=== PATIENT | male | born 1955 | race Caucasian/White ===

== ENCOUNTER 2017-04-30 18:39 | Inpatient (IN) | payer BC ==
[~2017-04-30] VITALS: Ht 162.6 cm; Wt 90.7 kg
[~2017-04-30 18:39] MED LIST: ADVIN10/60 INH; ALBUAER INH; ASPI-320 PO; MONT1TAB3 PO; SIMV20TA2 PO
[2017-04-30] MEDS ORDERED: ALBUT/IPRATROP 3MG/0.5MG NEB 3 ML VIAL INH ONE (18:45)
[2017-04-30 18:51] VITALS: PULSE 104; O2SAT 97
[2017-04-30 18:52] VITALS: PULSE 104; O2SAT 97
[2017-04-30] MEDS ORDERED: SODIUM CHLORIDE 0.9% 1000ML 1,000 ML IV STA (18:58)
--- NOTE | 2017-04-30 19:15 | DIAGNOSTIC IMAGING REPORT ---
CHEST ONE VIEW PORTABLE CLINICAL HISTORY: Asthma attack COMPARISON STUDY: Chest radiograph June 20, 2014. FINDINGS: Lung volumes are diminished. No pneumothorax or pleural effusion is present. There is no lobar consolidation. There is lower lung interstitial prominence. Cardiac size is at the upper limits of normal and accentuated on this hypoventilatory study. IMPRESSION: Lower lung interstitial prominence which is likely related to a hypoventilatory study. An infectious etiology or pulmonary vascular congestion could appear similar although are considered less likely. No definite acute cardiopulmonary findings. Electronically signed by: Mich Ortiz M.D. 04/30/2017 7:13 PM Dictated Date/Time: 04/30/2017 7:09 PM
[2017-04-30] MEDS ORDERED: DOXYCYCLINE IV 100 MG in DEXTROSE 5% 100ML 100 ML IV STA (19:17)
[2017-04-30 19:18] LABS: BASO % 0.6 %; BASO ABS # 0.06 K/uL (0-0.2); EOS % 1.1 %; EOS ABS # 0.11 K/uL (0-0.5); HEMATOCRIT 44.4 % (42-52); HEMOGLOBIN 15.9 g/dL (14.0-18.0); IG# 0.03 K/uL (0.00-0.02); LYMPH % 22.8 %; MEAN CELL VOLUME 87.9 fL (80-100); MEAN CORPUSCULAR HEMOGLOBIN 31.5 pg (25-34); MEAN CORPUSCULAR HGB CONC 35.8 g/dl (32-36); MEAN PLATELET VOLUME 10.4 fL (7.4-10.4); MONO % 5.3 %; MONO ABS # 0.51 K/uL (0.11-0.59); NEUT % 69.9 %; NEUT ABS # 6.75 K/uL (1.4-6.5); PLATELET COUNT 193 K/uL (130-400); RED CELL DISTRIBUTION WIDTH SD 41.4 fL (36.4-46.3); WHITE BLOOD COUNT 9.66 K/uL (4.8-10.8)
[2017-04-30 19:34] LABS: BLOOD UREA NITROGEN 17 mg/dl (7-18); CALCIUM 8.8 mg/dl (8.5-10.1); CARBON DIOXIDE 23 mmol/L (21-32); GLUCOSE 220 mg/dl (70-99); SODIUM 139 mmol/L (136-145)
[2017-04-30] MEDS ORDERED: POTASSIUM CHLR 20 MEQ / WTR 20 MEQ in PREMIXED WATER 100 ML IV STA (19:40)
[2017-04-30 20:01] LABS: INFLUENZA B ANTIGEN Neg for Influ B (NEG)
[2017-04-30] MEDS ORDERED: ICOS1CAP PO (20:04)
[2017-04-30] MEDS ORDERED: ASPI81TA28 PO (20:04)
[2017-04-30] MEDS ORDERED: [UNRECOGNIZED DRUG - OTHER] PO (20:04)
[2017-04-30] MEDS ORDERED: [UNRECOGNIZED DRUG - OTHER] PO (20:04)
[2017-04-30] MEDS ORDERED: LISI-461 PO (20:04)
[2017-04-30] MEDS ORDERED: CHOL400C PO (20:04)
[2017-04-30] MEDS ORDERED: SIMV40TA2 PO (20:04)
[2017-04-30] MEDS ORDERED: [UNRECOGNIZED DRUG - OTHER] PO (20:04)
[2017-04-30] MEDS: POTASSIUM CHLR 10 MEQ / WTR 10 MEQ in PREMIXED WATER 100 ML IV SCH ×2 (20:05→21:13)
[2017-04-30] MEDS ORDERED: CLONIDINE HCL 0.1 MG TAB PO PRN (20:30)
[2017-04-30 20:39] LABS: INFLUENZA B PCR Neg for Influ B (NEG)
[2017-04-30 20:41] LABS: INFLUENZA A PCR POS for Influ A (NEG)
[2017-04-30] MEDS ORDERED: ACETAMINOPHEN 325 MG TAB PO PRN (20:45)
--- NOTE | 2017-04-30 20:45 | NUR ---
PATIENT ADMITTED TO PCU ROOM 218 FROM ER VIA LITTER FOR ASTHMA EXACERBATION. PRIMARY RN AT BEDSIDE. KNITTING MACHINE MECHANIC APPLIED, VITAL SIGNS OBTAINED. PATIENT ON BIPAP AT THIS TIME, ALERT AND ORIENTED, AND AMBULATORY. NO ACUTE DISTRESS NOTED. PATIENT ASSESSED, ADMISSION ASSESSMENT COMPLETED, SEE EMR FOR ASSESSMENT. PATIENT DENIES DYSPNEA. PATIENT REPORTS PAIN 5/10, HEADACHE, AT THIS TIME, GOAL PAIN 0/10. FAMILY AT BEDSIDE. EDUCATION PROVIDED ON FALL RISK AND YELLOW SOCKS APPLIED. EDUCATION PROVIDED ON PRECAUTIONS. PATIENT ORIENTED TO ROOM, CALL LOGAN, BED CONTROLS, AND HOSPITAL PROCEDURE. CALL LOGAN WITHIN REACH. CONTINUING CARE PROVIDED BY PRIMARY RNKERMIT. GOAL FOR DISCHARGE IS HOME WITH .
[2017-04-30 21:00] VITALS: BP 177/76; PULSE 97; TEMP 36.5; O2SAT 99; Ht 162.6 cm; Wt 90.7 kg
[2017-04-30] MEDS ORDERED: POTASSIUM CHLORIDE 20 MEQ TABCR PO ONE (21:00)
[2017-04-30] MEDS: SIMVASTATIN 40 MG TAB PO SCH (21:12)
[2017-04-30] MEDS: CEFTRIAXONE SOD INJ 1 GM in DEXTROSE 5% ADD-VANTAGE 50ML 50 ML IV SCH (21:12)
[2017-04-30] MEDS: METHYLPREDNISOLONE IV 60 MG in SYRINGE 0 ML IV SCH (21:12)
[2017-04-30] MEDS: LISINOPRIL 10 MG TAB PO SCH (21:12)
[2017-04-30] MEDS: NSS + 20MEQ KCL 1000ML 1,000 ML IV SCH (21:13)
[2017-04-30] MEDS ORDERED: OSELTAMIVIR PHOSPHATE 75 MG CAP PO STA (21:32)
--- NOTE | 2017-04-30 21:46 | EMERGENCY ROOM VISIT NOTE ---
History Report prepared by Deonna: Twan Correia Under the Supervision of: Dr. Marin Perera M.D. First contact with patient: 18:42 Chief Complaint: RESPIRATORY DISTRESS Stated Complaint: ASTHMA ATTACK History of Present Illness The patient is a 61 year old male who presents to the Emergency Room by EMS with complaints of worsening shortness of breath throughout the day. EMS states that the patient's breathing has improved significantly en route. Patient adds that his breathing is worsened with exertion and that he was unable to walk due to SOB today. He states he has tight lung moody. He denies any smoke exposure and sick contacts. He states he does have mild chest pressure (nonspecific). EMS states that they administered the patient multiple rounds of albuterol, 125 mg IV solumedrol, and 2 grams of IV magnesium. 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 Source of History: patient Onset: today Quality: other (shortness of breath) Timing: worsening Modifying Factors (Worsening): exertion Associated Symptoms: + chest pain (Mild chest pressure), + SOB Note: Patient adds he has tight lungs. Review of Systems See HPI for pertinent positives & negatives. A total of 10 systems reviewed and were otherwise negative. Past Medical & Surgical Medical Problems: (1) Asthma exacerbation Family History No pertinent family history stated. Social History Smoking Status: Unknown if Ever Smoked Drug Use: none Housing Status: lives with family Occupation Status: employed Current/Historical Medications Scheduled Aspirin (Aspirin Ec), 81 MG PO DAILY Cholecalciferol (Vitamin D3 400), 400 INTER.UNIT PO DAILY Icosapent Ethyl (Vascepa), 2 GM PO BID Lisinopril (Zestril), 10 MG PO DAILY Simvastatin (Zocor), 40 MG PO QPM [AG Immune], 2 CAP PO DAILY [BodyWise RightChoice], 1 CAP PO BID [Liva Tone], 2 CAP PO DAILY Allergies Coded Allergies: No Known Allergies (Unverified , 06/20/14) Physical Exam Vital Signs Date Time Temp Pulse Resp B/P (MAP) Pulse Ox O2 Delivery O2 Flow Rate FiO2 04/30/17 19:39 100 24 171/80 97 CPAP 04/30/17 19:33 189/88 04/30/17 19:09 93 19 96 CPAP 04/30/17 19:08 93 04/30/17 19:02 164/80 04/30/17 18:52 104 97 60 04/30/17 18:51 104 22 97 BiPAP/CPAP 04/30/17 18:39 36.6 92 20 189/97 98 BiPAP 04/30/17 18:39 100 BiPAP Physical Exam GENERAL: Patient is well appearing and in moderate distress. HEENT: No acute trauma, normocephalic atraumatic, mucous membranes moist, no nasal congestion, no scleral icterus. NECK: No stridor, no adenopathy, no meningismus, trachea is midline. LUNGS: Tight lung moody, mild wheezing, mildly dyspneic and tachypneic. HEART: Regular rate and rhythm. No murmurs, rubs, gallops appreciated. ABDOMEN: Soft, nontender, bowel sounds positive, no masses appreciated, no peritonitis. BACK: No midline tenderness, no CVA tenderness EXTREMITIES: Normal motion all extremities, no cyanosis, no edema. NEUROLOGIC: Alert and oriented, no acute motor or sensory deficits, no focal weakness, cranial nerves grossly intact. SKIN: No rash, no jaundice, no diaphoresis. Medical Decision & Procedures ER Provider Diagnostic Interpretation: Radiology results and stated below per my review and radiologist interpretation: CHEST ONE VIEW PORTABLE CLINICAL HISTORY: Asthma attack COMPARISON STUDY: Chest radiograph June 20, 2014. FINDINGS: Lung volumes are diminished. No pneumothorax or pleural effusion is present. There is no lobar consolidation. There is lower lung interstitial prominence. Cardiac size is at the upper limits of normal and accentuated on this hypoventilatory study. IMPRESSION: Lower lung interstitial prominence which is likely related to a hypoventilatory study. An infectious etiology or pulmonary vascular congestion could appear similar although are considered less likely. No definite acute cardiopulmonary findings. Electronically signed by: Mich Ortiz M.D. 04/30/2017 7:13 PM Laboratory Results 04/30/17 18:50 Red Blood Count 5.05, Mean Corpuscular Volume 87.9, Mean Corpuscular Hemoglobin 31.5, Mean Corpuscular Hemoglobin Concent 35.8, Mean Platelet Volume 10.4, Neutrophils (%) (Auto) 69.9, Lymphocytes (%) (Auto) 22.8, Monocytes (%) (Auto) 5.3, Eosinophils (%) (Auto) 1.1, Basophils (%) (Auto) 0.6, Neutrophils # (Auto) 6.75, Lymphocytes # (Auto) 2.20, Monocytes # (Auto) 0.51, Eosinophils # (Auto) 0.11, Basophils # (Auto) 0.06 04/30/17 18:50 Test 04/30/17 18:50 04/30/17 18:56 04/30/17 19:00 White Blood Count 9.66 K/uL (4.8-10.8) Red Blood Count 5.05 M/uL (4.7-6.1) Hemoglobin 15.9 g/dL (14.0-18.0) Hematocrit 44.4 % (42-52) Mean Corpuscular Volume 87.9 fL (80-100) Mean Corpuscular Hemoglobin 31.5 pg (25-34) Mean Corpuscular Hemoglobin Concent 35.8 g/dl (32-36) Platelet Count 193 K/uL (130-400) Mean Platelet Volume 10.4 fL (7.4-10.4) Neutrophils (%) (Auto) 69.9 % Lymphocytes (%) (Auto) 22.8 % Monocytes (%) (Auto) 5.3 % Eosinophils (%) (Auto) 1.1 % Basophils (%) (Auto) 0.6 % Neutrophils # (Auto) 6.75 K/uL (1.4-6.5) Lymphocytes # (Auto) 2.20 K/uL (1.2-3.4) Monocytes # (Auto) 0.51 K/uL (0.11-0.59) Eosinophils # (Auto) 0.11 K/uL (0-0.5) Basophils # (Auto) 0.06 K/uL (0-0.2) RDW Standard Deviation 41.4 fL (36.4-46.3) RDW Coefficient of Variation 13.0 % (11.5-14.5) Immature Granulocyte % (Auto) 0.3 % Immature Granulocyte # (Auto) 0.03 K/uL (0.00-0.02) Prothrombin Time 10.3 SECONDS (9.0-12.0) Prothromb Time International Ratio 1.0 (0.9-1.1) Anion Gap 11.0 mmol/L (3-11) Est Creatinine Clear Calc Drug Dose 58.9 ml/min Estimated GFR () 67.3 Estimated GFR (Non- 58.1 BUN/Creatinine Ratio 13.1 (10-20) Calcium Level 8.8 mg/dl (8.5-10.1) Magnesium Level 3.4 mg/dl (1.8-2.4) Troponin I < 0.015 ng/ml (0-0.045) Bedside Lactic Acid Venous 3.18 mmol/L (0.90-1.70) Influenza Type A (RT-PCR) POS for Influ A (NEG) Influenza Type A Antigen Neg for Influ A (NEG) Influenza Type B Antigen Neg for Influ B (NEG) Influenza Type B (RT-PCR) Neg for Influ B (NEG) Laboratory results as reviewed by me. Medications Administered Medications (Trade) Dose Ordered Sig/Katiana Route Start Time Stop Time Status Last Admin Dose Admin Albuterol/ Ipratropium (Duoneb) 12 ml ONE ONCE INH 04/30/17 18:45 04/30/17 18:46 DC 04/30/17 18:51 12 ML Sodium Chloride 1,000 ml @ 999 mls/hr Q1H1M STAT IV 04/30/17 18:58 04/30/17 19:58 DC 04/30/17 18:58 999 MLS/HR Doxycycline Hyclate 100 mg/ Dextrose 110 ml @ 50 mls/hr NOW STAT IV 04/30/17 19:17 04/30/17 21:28 DC 04/30/17 19:39 50 MLS/HR ECG Indication: chest pain Rate (beats per minute): 98 Rhythm: normal sinus Findings: ST depression (Lateral), no ectopy, other (No STEMI) ED Course 1839: The patient was evaluated in room B1. A complete history and physical exam was performed. 1941: Upon reevaluation, the patient will be further evaluated. Discussed results and treatment plan with the patient. He verbalized understanding and agreement with the treatment plan. The patient will be evaluated for further management. Medical Decision Differential: Infectious, Reactive Airway Disease, Pneumonia, Pneumothorax, COPD , CHF, ACS, Pulmonary Embolism, MSK, GI, Dissection, amongst other etiologies entertained. 61 yr old male arrives via EMS following severe asthma exacerbation. Med command given by me. Arrives already doing better though still quite tight thus will continue with bipap and continuous neb. Labs OK. Questionable infectious etiology thus will give dose of doxy. Some lateral ST depressions though no stemi and I feel this is unlikely ACS. LA is moderately elevated which I suspect due to severity of exacerbation rather than sepsis, but will given IV fluids to flush. Blood cultures were obtained on arrival as it is and I am given IV doxy for abx coverage. Symptoms consistent with Asthma and I feel unlikely this is PE and he has no current risk factors. Breathing well on Bipap and ABG looks ok. Stable hospitalist will be in to see for further work- up and treatment. Medication Reconcilliation Current Medication List: was personally reviewed by me Blood Pressure Screening Patient's blood pressure: Elevated blood pressure Blood pressure disposition: Referred to PCP (Monitored by hospitalist) Consults Time Called: 1939 Consulting Physician: Dr. Terry Cutler Hospitalist Returned Call: 1941 Discussed the patient's case. The patient will be evaluated for further treatment and disposition. Impression Primary Impression: Hypokalemia Additional Impressions: Acute asthma exacerbation Lactic acidosis Critical Care I have personally spent greater than 40 minutes of critical care time in the direct management of this patient. This was a life/limb threatening event. This includes time spent evaluating patient, direct bedside care, chart review, placing orders, interpretation of diagnostic studies, discussion with consultants, patient, and family members, as well as other required patient management activities. This 40 minutes is in excess of all separately billable procedures. Scribe Attestation The scribe's documentation has been prepared under my direction and personally reviewed by me in its entirety. I confirm that the note above accurately reflects all work, treatment, procedures, and medical decision making performed by me. Departure Information Dispostion Being Evaluated By Hospitalist Referrals Rainer Umanzor M.D. (PCP) Forms HOME CARE DOCUMENTATION FORM, IMPORTANT VISIT INFORMATION Patient Instructions Asthma - [facility], COPD - [facility], Croup - [facility], My [facility] Problem Qualifiers
[2017-04-30 21:47] VITALS: PULSE 93; O2SAT 99
[2017-04-30] MEDS: ENOXAPARIN 40 MG/0.4 ML SYR SC SCH (22:01)
[2017-04-30 23:31] LABS: CKMB 2.7 ng/ml (0.5-3.6)
[2017-04-30 23:45] VITALS: PULSE 90; O2SAT 98
[2017-04-30] MEDS: LEVALBUTEROL 1.25MG/0.5ML NEB INH SCH (23:57)
[2017-05-01] VITALS (17 sets, daily range): BP systolic 111–168; BP diastolic 65–74; PULSE 62–107; TEMP 36.3–36.8; O2SAT 97–99
--- NOTE | 2017-05-01 00:05 | NUR ---
A: Assessment completed- see EMR for full detail; VSS, - see EMR; AA&Ox4, Appropriate; NSR, noted on monitor; Denies CP/SOB, BIPAP; pt. denies pain at this time; Pt. currently resting comfortably in bed; no needs apparent or verbalized at this time; IV site intact - IVF infusing per order; labs reviewed - results of lactic acid called to MD -see EMR/ Physician notified; safety reviewed; call-manning & items of necessity in reach, Pt. rings appropriately for assistance; will continue to monitor & assess.
--- NOTE | 2017-05-01 00:35 | History and Physical ---
History & Physical Date & Time of Service: May 01, 2017 at 00:25 Chief Complaint: Asthma Exacerbation Primary Care Physician: Rainer Umanzor M.D. History of Present Illness Source: patient, spouse 61 year old male with history of asthma, HTN, JULES, Gout, presenting with shortness of breath, that started this afternoon. Patient states that he has history of asthma but rarely uses PRN inhalers, and has history of JULES, but does not use his CPAP. adds that patient has been outside in the cold for the past 1-2 days, doing carols for Margaret. Today, patient had progressive shortness of breath starting this morning and cough productive of yellow sputum. Has chills, sensation of chest pain with the dyspnea. Per his , patient had worsening of shortness of breath this afternoon prompting her to call EMS. Patient was apparently given Duonebs, Solumedrol while en route to the ER. At the ER, patient was noted to have wheezing and was placed on Bipap, given additional Duoneb. CXR showed possible left lower lobe pneumonia, and was given Doxycycline. On exam, patient was still on Bipap mask and reports that he feels improved compared to admission. Family History Non contributory Social History Smoking Status: Unknown if Ever Smoked Smokeless Tobacco Use: No Alcohol Use: none Drug Use: none Marital Status: Housing status: lives with family Occupational Status: employed Allergies Coded Allergies: No Known Allergies (Unverified , 06/20/14) Home Medications Scheduled Aspirin (Aspirin Ec), 81 MG PO DAILY Cholecalciferol (Vitamin D3 400), 400 INTER.UNIT PO DAILY Icosapent Ethyl (Vascepa), 2 GM PO BID Lisinopril (Zestril), 10 MG PO DAILY Simvastatin (Zocor), 40 MG PO QPM [AG Immune], 2 CAP PO DAILY [BodyWise RightChoice], 1 CAP PO BID [Liva Tone], 2 CAP PO DAILY Review of Systems Constitutional- no fever; no weight loss Eyes- no acute visual changes ENT- no sinus drainage; no pharyngitis Pulmonary- (+) as noted above Cardiac- (+) mild chest pain, no palpitations, no orthopnea, no dependent edema GI- no nausea, no vomiting, no diarrhea, no melena, no hematochezia - no dysuria, no hematuria Musculoskeletal- no arthralgias, no myalgias Derm- no rashes, no new skin lesions, no changing skin lesions Hematologic- no unusual bruising, no unusual bleeding Lymphatics- no adenopathy Endocrine- no polyuria or polydipsia; no heat or cold intolerance Neuro- no headaches, no focal neurologic symptoms Psych- no anxiety, no depression Physical Exam Vital Signs Date Time Temp Pulse Resp B/P (MAP) Pulse Ox O2 Delivery O2 Flow Rate FiO2 05/01/17 00:12 36.8 89 19 144/68 (93) 98 BiPAP 04/30/17 23:45 90 22 98 BiPAP/CPAP 04/30/17 21:47 93 99 40 04/30/17 21:00 36.5 97 20 177/76 99 BiPAP 04/30/17 20:11 92 18 183/90 98 CPAP 60 04/30/17 19:39 100 24 171/80 97 CPAP 04/30/17 19:33 189/88 04/30/17 19:09 93 19 96 CPAP 04/30/17 19:08 93 04/30/17 19:02 164/80 04/30/17 18:52 104 97 60 04/30/17 18:51 104 22 97 BiPAP/CPAP 04/30/17 18:39 36.6 92 20 189/97 98 BiPAP 04/30/17 18:39 100 BiPAP General Appearance: WD/WN, no apparent distress Head: normocephalic, atraumatic Eyes: normal inspection, PERRL, EOMI, sclerae normal ENT: normal ENT inspection, hearing grossly normal, pharynx normal Neck: supple, no adenopathy, thyroid normal, no JVD, trachea midline Respiratory/Chest: chest non-tender, no respiratory distress, no accessory muscle use, + pertinent finding (distant breath sounds but no wheezing, good air entry) Cardiovascular: regular rate, rhythm, no edema, no JVD, no murmur, normal peripheral pulses Abdomen/GI: normal bowel sounds, non tender, soft, no organomegaly Back: normal inspection, no CVA tenderness Extremities/Musculoskelatal: normal inspection, no calf tenderness, normal capillary refill, no pedal edema, normal range of motion Neurologic/Psych: pit tanner II-XII nml as tested, no motor/sensory deficits, alert, normal mood/affect, oriented x 3 Skin: normal color, warm/dry, no rash Lymphatic: + axillary node abnormality Diagnostics Laboratory Results Results Past 24 Hours Test 04/30/17 18:50 04/30/17 18:56 04/30/17 19:00 04/30/17 19:59 Range/Units White Blood Count 9.66 4.8-10.8 K/uL Red Blood Count 5.05 4.7-6.1 M/uL Hemoglobin 15.9 14.0-18.0 g/dL Hematocrit 44.4 42-52 % Mean Corpuscular Volume 87.9 80-100 fL Mean Corpuscular Hemoglobin 31.5 25-34 pg Mean Corpuscular Hemoglobin Concent 35.8 32-36 g/dl Platelet Count 193 130-400 K/uL Mean Platelet Volume 10.4 7.4-10.4 fL Neutrophils (%) (Auto) 69.9 % Lymphocytes (%) (Auto) 22.8 % Monocytes (%) (Auto) 5.3 % Eosinophils (%) (Auto) 1.1 % Basophils (%) (Auto) 0.6 % Neutrophils # (Auto) 6.75 1.4-6.5 K/uL Lymphocytes # (Auto) 2.20 1.2-3.4 K/uL Monocytes # (Auto) 0.51 0.11-0.59 K/uL Eosinophils # (Auto) 0.11 0-0.5 K/uL Basophils # (Auto) 0.06 0-0.2 K/uL RDW Standard Deviation 41.4 36.4-46.3 fL RDW Coefficient of Variation 13.0 11.5-14.5 % Immature Granulocyte % (Auto) 0.3 % Immature Granulocyte # (Auto) 0.03 0.00-0.02 K/uL Prothrombin Time 10.3 9.0-12.0 SECONDS Prothromb Time International Ratio 1.0 0.9-1.1 Sodium Level 139 136-145 mmol/L Potassium Level 3.0 3.5-5.1 mmol/L Chloride Level 105 98-107 mmol/L Carbon Dioxide Level 23 21-32 mmol/L Anion Gap 11.0 3-11 mmol/L Blood Urea Nitrogen 17 7-18 mg/dl Creatinine 1.30 0.60-1.40 mg/dl Est Creatinine Clear Calc Drug Dose 58.9 ml/min Estimated GFR () 67.3 Estimated GFR (Non- 58.1 BUN/Creatinine Ratio 13.1 10-20 Random Glucose 220 70-99 mg/dl Calcium Level 8.8 8.5-10.1 mg/dl Magnesium Level 3.4 1.8-2.4 mg/dl Troponin I < 0.015 0-0.045 ng/ml Bedside Lactic Acid Venous 3.18 0.90-1.70 mmol/L Influenza Type A (RT-PCR) POS for Influ A NEG Influenza Type A Antigen Neg for Influ A NEG Influenza Type B Antigen Neg for Influ B NEG Influenza Type B (RT-PCR) Neg for Influ B NEG Arterial Blood pH 7.38 7.35-7.45 Arterial Blood Partial Pressure CO2 43 35-46 mmHg Arterial Blood Partial Pressure O2 39 80-95 mm/Hg Arterial Blood HCO3 25 19-24 mmol/L Arterial Blood Oxygen Saturation 71.6 90-95 % Arterial Blood Base Excess -0.3 -9-1.8 mEq/L Arterial Blood Gas Delivery 60% FIO2 Jacques Test POS POS Test 04/30/17 23:02 Range/Units Lactic Acid Level 3.6 0.4-2.0 mmol/L Total Creatine Kinase 91 39-308 U/L Creatine Kinase MB 2.7 0.5-3.6 ng/ml Creatine Kinase MB Ratio 3.0 0-3.0 Troponin I < 0.015 0-0.045 ng/ml Microbiology Results 04/30/17 Blood Culture, Received Pending 04/30/17 Blood Culture, Received Pending Diagnostic Radiology CXR Lower lung interstitial prominence which is likely related to a hypoventilatory study. An infectious etiology or pulmonary vascular congestion could appear similar although are considered less likely. No definite acute cardiopulmonary findings. EKG no signs of acute ischemia Impression Assessment and Plan 61 year old male with history of asthma, HTN, JULES, Gout, presenting with shortness of breath, that started this afternoon. ACUTE ASTHMA EXACERBATION LIKELY SECONDARY TO INFLUENZA A INFECTION, POSSIBLE BIBASILAR PNEUMONIA - (+) Influenza A PCR - wean off Bipap per protocol - ff sputum GS and CS - Solumedrol 40mg q8h Nebs q4h Tamiflu, Ceftri + Doxy HTN - continue Lisinopril PRN Clonidine HYPOKALEMIA - replace with PO K LACTIC ACIDOSIS - IV NSS monitor levels PROLONGED QT - avoid QT prolonging medications - repeat EKG in AM DVT PROPHYLAXIS - Lovenox SC FULL CODE as per patient DISPOSITION anticipate d/c home when medically stable PCP: Dr. 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 Y/N: Yes Risk Level: Moderate
[2017-05-01] MEDS: LEVALBUTEROL 1.25MG/0.5ML NEB INH SCH ×6 (03:23→23:00)
--- NOTE | 2017-05-01 04:07 | NUR ---
A: Assessment completed and updated- see EMR for full detail; VSS, - see EMR; AA&Ox4, Appropriate; NSR, noted on monitor; Denies CP/SOB, BIPAP; pt. denies pain at this time; Pt. currently resting comfortably in bed; no needs apparent or verbalized at this time; IV site intact - IVF infusing per order; safety reviewed; call-manning & items of necessity in reach; will continue to monitor & assess.
[2017-05-01 04:54] LABS: HEMATOCRIT 40.1 % (42-52); HEMOGLOBIN 14.1 g/dL (14.0-18.0); IG# 0.01 K/uL (0.00-0.02); LYMPH % 5.2 %; MEAN CELL VOLUME 88.5 fL (80-100); MEAN CORPUSCULAR HEMOGLOBIN 31.1 pg (25-34); MEAN CORPUSCULAR HGB CONC 35.2 g/dl (32-36); MEAN PLATELET VOLUME 10.1 fL (7.4-10.4); MONO % 1.3 %; NEUT % 93.4 %; NEUT ABS # 7.11 K/uL (1.4-6.5); PLATELET COUNT 172 K/uL (130-400); RED CELL DISTRIBUTION WIDTH SD 42.2 fL (36.4-46.3); WHITE BLOOD COUNT 7.62 K/uL (4.8-10.8)
[2017-05-01 05:12] LABS: CALCIUM 7.8 mg/dl (8.5-10.1); CREATININE 1.36 mg/dl (0.60-1.40); POTASSIUM 4.1 mmol/L (3.5-5.1)
[2017-05-01] MEDS: NSS + 20MEQ KCL 1000ML 1,000 ML IV SCH ×2 (05:19→11:45)
[2017-05-01] MEDS: METHYLPREDNISOLONE IV 60 MG in SYRINGE 0 ML IV SCH ×3 (05:20→22:18)
[2017-05-01 05:22] LABS: CKMB 3.7 ng/ml (0.5-3.6)
[2017-05-01] MEDS: ASPIRIN 81 MG ECTAB PO SCH (07:41)
[2017-05-01] MEDS: DOXYCYCLINE IV 100 MG in DEXTROSE 5% 100ML 100 ML IV SCH ×2 (07:41→19:52)
[2017-05-01] MEDS: OSELTAMIVIR PHOSPHATE 75 MG CAP PO SCH ×2 (07:41→19:47)
[2017-05-01] MEDS: ALLOPURINOL 100 MG TAB PO SCH (07:41)
--- NOTE | 2017-05-01 08:00 | NUR ---
Pt in room, AAOx4 with mild complaints of headache. On 3LNC at thsi time with VSS. On tamiflu for flu and abx for possible pna. Needs addressed and call manning in reach.
--- NOTE | 2017-05-01 08:58 | DIAGNOSTIC IMAGING REPORT ---
CHEST 2 VIEWS ROUTINE CLINICAL HISTORY: 61 years-old Male presenting with r/o pneumonia, asthma exacerbation. TECHNIQUE: PA and lateral views of the chest were obtained. COMPARISON: 04/30/2017. FINDINGS: Overlying external leads degrade image quality. Cardiomediastinal silhouette normal. Improved aeration. No focal infiltrate. No pleural effusion or pneumothorax. Osseous structures normal. Upper abdomen normal. IMPRESSION: 1. Improved aeration. No focal infiltrate to suggest pneumonia. Electronically signed by: Kwame Obrien M.D. 05/01/2017 8:57 AM Dictated Date/Time: 05/01/2017 8:55 AM
--- NOTE | 2017-05-01 12:00 | NUR ---
Pt reassessment unchanged. VSS on 3LNC. Needs addressed and call manning inr each.
--- NOTE | 2017-05-01 16:00 | NUR ---
A: pt is resting in bed. 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 lungs diminished on 2L. no complaints of pain or sob. see emr for full inpatient services rn. call manning in reach. will continue to monitor the patient.
--- NOTE | 2017-05-01 16:40 | NUR ---
quiq to Dr. Felipe Flynn having some heartburn. asked for Tums if possible. Thank you. Saroj [phone]
--- NOTE | 2017-05-01 17:00 | Progress Note ---
Internal Med Progress Note Date of Service: May 01, 2017. Provider Documentation: SUBJECTIVE: cough has improved afebrile still feels very weak and fatigued no muscle aches or pain OBJECTIVE: Vital Signs-as noted below Exam: General-no sign of discomfort Eyes-sclera non icteric , PERRLA/EOMI ENT-moist oral mucosa , normal oropharynx Neck-trachea midline , no thyromegaly Lungs-diminished Heart-regular , S1/S2, no JVD, no lower ext edema Abdomen-soft, non tender Extremities-no rash or deformity Neuro-no focal neurological deficit, AAO x3 Lab data as noted below. ASSESSMENT & PLAN: 61 year old male with history of asthma, HTN, JULES, Gout, presented with shortness of breath, ACUTE ASTHMA EXACERBATION LIKELY SECONDARY TO INFLUENZA A INFECTION, POSSIBLE BIBASILAR PNEUMONIA - (+) Influenza A PCR - follow up sputum culture and gram statin - Solumedrol 40mg q8h Nebs q4h empiric abx with Rocephin /Doxycycline INFLUENZA A : cont Tamiflu Droplet precaution HTN - continue Lisinopril HYPOKALEMIA - replace with PO K LACTIC ACIDOSIS -due to infection -Flu /dehydration /hypoxia no evidence of Sepsis cont IV fluid follow level PROLONGED QT - avoid QT prolonging medications - repeat EKG in AM DVT PROPHYLAXIS - Lovenox SC FULL CODE as per patient DISPOSITION anticipate d/c home when medically stable PCP: Dr. Kang from [place] Vital Signs: Date Time Temp Pulse Resp B/P (MAP) Pulse Ox O2 Delivery O2 Flow Rate FiO2 05/02/17 15:05 36.5 79 20 128/57 (80) 95 Room Air 05/02/17 13:25 Room Air 05/02/17 11:30 36.7 82 20 115/69 (84) 96 Room Air 05/02/17 10:46 36.8 94 22 95 05/02/17 08:00 36.8 94 22 130/64 (86) 95 Room Air 05/02/17 08:00 Room Air 05/02/17 06:58 82 16 98 Nasal Cannula 2.0 05/02/17 04:00 Nasal Cannula 2.0 05/02/17 03:50 36.6 84 18 142/77 (98) 97 BiPAP 40 05/02/17 03:17 82 16 98 Nasal Cannula 3.0 05/02/17 00:24 36.8 82 19 124/67 (86) 97 BiPAP 05/02/17 00:00 Nasal Cannula 3.0 05/01/17 23:03 72 98 30 05/01/17 23:02 72 20 98 BiPAP/CPAP 30 05/01/17 20:00 Nasal Cannula 2.0 Lab Results: Results Past 24 Hours Test 05/02/17 05:59 05/02/17 11:00 Range/Units Sodium Level 140 136-145 mmol/L Potassium Level 4.2 3.5-5.1 mmol/L Chloride Level 110 98-107 mmol/L Carbon Dioxide Level 20 21-32 mmol/L Anion Gap 10.0 3-11 mmol/L Blood Urea Nitrogen 19 7-18 mg/dl Creatinine 1.31 0.60-1.40 mg/dl Est Creatinine Clear Calc Drug Dose 58.2 ml/min Estimated GFR () 66.7 Estimated GFR (Non- 57.5 BUN/Creatinine Ratio 14.5 10-20 Random Glucose 208 70-99 mg/dl Estimated Average Glucose 120 mg/dl Hemoglobin A1c 5.8 4.5-5.6 % Lactic Acid Level 3.4 0.4-2.0 mmol/L Calcium Level 8.0 8.5-10.1 mg/dl Magnesium Level 2.2 1.8-2.4 mg/dl Urine Color YELLOW Urine Appearance CLEAR CLEAR Urine pH 5.0 4.5-7.5 Urine Specific [place] 1.029 1.000-1.030 Urine Protein NEG NEG Urine Glucose (UA) 3+ NEG Urine Ketones NEG NEG Urine Occult Blood NEG NEG Urine Nitrite NEG NEG Urine Bilirubin NEG NEG Urine Urobilinogen NEG NEG Urine Leukocyte Esterase NEG NEG
[2017-05-01] MEDS: SODIUM CHLORIDE 0.9% 1000ML 1,000 ML IV SCH (17:07)
[2017-05-01] MEDS: ENOXAPARIN 40 MG/0.4 ML SYR SC SCH (19:46)
[2017-05-01] MEDS: CALCIUM CARBONATE 500 MG CHEWABLE PO PRN (19:46)
[2017-05-01] MEDS: LISINOPRIL 10 MG TAB PO SCH (19:47)
[2017-05-01] MEDS: SIMVASTATIN 40 MG TAB PO SCH (19:47)
--- NOTE | 2017-05-01 20:00 | NUR ---
A: pt is resting in bed. no complaints of pain or sob. on 2L nc. see emr for full sock turner. call manning in reach. will continue to monitor the patient.
[2017-05-01] MEDS: CEFTRIAXONE SOD INJ 1 GM in DEXTROSE 5% ADD-VANTAGE 50ML 50 ML IV SCH (22:18)
[2017-05-02] VITALS (10 sets, daily range): BP systolic 115–142; BP diastolic 57–77; PULSE 69–94; TEMP 36.5–36.8; O2SAT 95–98
--- NOTE | 2017-05-02 | NUR ---
A:Nursing assessment completed. Pt resting in bed watching television. Bipap on, pt requesting to be removed due to ongoing bridge of nose discomfort. Placed back on nasal cannula. Respirations easy and unlabored. Nss infusing without difficulty. Voiding adequate amounts. Nsr displaying on monitor. Verbalizes understanding to ring call manning for assistance with needs.
[2017-05-02] MEDS: CALCIUM CARBONATE 500 MG CHEWABLE PO PRN ×3 (00:16→15:51)
[2017-05-02] MEDS ORDERED: NURSING VERBAL MED ORDER ONE (01:15)
--- NOTE | 2017-05-02 01:19 | NUR ---
Pt rang call manning with request for additional tums for ongoing heart burn. Pt denies chest pain/pressure. Spoke with Dr. Stewart, telephone order recieved to given additional tums at this time.
[2017-05-02] MEDS ORDERED: CALCIUM CARBONATE 500 MG CHEWABLE PO STA (01:21)
[2017-05-02] MEDS: SODIUM CHLORIDE 0.9% 1000ML 1,000 ML IV SCH ×3 (01:54→15:48)
[2017-05-02] MEDS: LEVALBUTEROL 1.25MG/0.5ML NEB INH SCH ×2 (03:14→06:58)
[2017-05-02] MEDS: METHYLPREDNISOLONE IV 60 MG in SYRINGE 0 ML IV SCH (06:05)
[2017-05-02 06:31] LABS: HEMOGLOBIN A1C 5.8 % (4.5-5.6)
[2017-05-02 06:47] LABS: CREATININE 1.31 mg/dl (0.60-1.40); POTASSIUM 4.2 mmol/L (3.5-5.1)
[2017-05-02] MEDS: OSELTAMIVIR PHOSPHATE 75 MG CAP PO SCH ×2 (07:47→21:49)
[2017-05-02] MEDS: ASPIRIN 81 MG ECTAB PO SCH (07:47)
[2017-05-02] MEDS: ALLOPURINOL 100 MG TAB PO SCH (07:47)
[2017-05-02] MEDS: DOXYCYCLINE IV 100 MG in DEXTROSE 5% 100ML 100 ML IV SCH (07:52)
--- NOTE | 2017-05-02 08:20 | NUR ---
A/ID: Patient is AAOX4, denies pain at this time, denies n/t. LS with expiratory wheezing, denies SOB, occasional moist nonproductive cough present. SR on monitor, denies CP/palp, PPP, no edema noted. Abdomen soft distended nontender, complains of intermittent nausea but no vomiting, reports diarrhea as well. Voids in toilet. Skin intact. NSS@125cc/hr. Educated on use of incentive spirometer. Instructed to collect urine sample and sputum sample if able to produce. Call manning within reach, will continue to monitor.
[2017-05-02] MEDS: LEValbuterol HFA 15GM INHALER INH SCH ×2 (11:28→15:43)
--- NOTE | 2017-05-02 12:47 | NUR ---
Case management note. Social service consult for discharge planning. Spoke with pt about discharge planning earlier. Pt lives with . Pt is independent with adl's. Pt does not use any assistive devices. Pt drives and work. Pts can help if needed. Explained role of keycase assembler. Pt denies any discharge needs. Pt transferred to med unit. Will give report to unit keycase assembler. Case management to follow with pt.
[2017-05-02] MEDS ORDERED: METHYLPREDNISOLONE IV 60 MG in SYRINGE 0 ML IV SCH (18:00)
--- NOTE | 2017-05-02 19:19 | Progress Note ---
Internal Med Progress Note Date of Service: May 02, 2017. Provider Documentation: SUBJECTIVE: improved SOB , has non productive cough no fever or chills no muscle aches OBJECTIVE: Vital Signs-as noted below Exam: General-no sign of discomfort Eyes-sclera non icteric , PERRLA/EOMI ENT-moist oral mucosa , normal oropharynx Neck-trachea midline , no thyromegaly Lungs-diminished Heart-regular , S1/S2, no JVD, no lower ext edema Abdomen-soft, non tender Extremities-no rash or deformity Neuro-no focal neurological deficit, AAO x3 Lab data as noted below. ASSESSMENT & PLAN: 61 year old male with history of asthma, HTN, JULES, Gout, presented with shortness of breath, ACUTE ASTHMA EXACERBATION LIKELY SECONDARY TO INFLUENZA A INFECTION, POSSIBLE BIBASILAR PNEUMONIA - (+) Influenza A PCR - respiratory status improved, no wheeze or rales noted D/C IV Solu Medrol started on PO prednisone taper Nebs q4h PRN empiric abx Doxycycline INFLUENZA A : cont Tamiflu for 5 days Droplet precaution HTN - continue Lisinopril GERD : has ongoing issue with heart burn /acid reflux takes TUMs PRN only symptom worse since admission -possibly due to steroids added PPI pt is asked to take Omeprazole for 4 weeks , if no improvement of symptom may need referral for GI eval LACTIC ACIDOSIS Elevated > 3 -due to infection -Flu /dehydration /hypoxia no evidence of Sepsis cont IV fluid follow level PROLONGED QT - avoid QT prolonging medications - DVT PROPHYLAXIS - Lovenox SC FULL CODE as per patient DISPOSITION possible discharge home tomorrow PCP: Dr. Kang from [place] Vital Signs: Date Time Temp Pulse Resp B/P (MAP) Pulse Ox O2 Delivery O2 Flow Rate FiO2 05/02/17 16:10 95 Room Air 05/02/17 15:05 36.5 79 20 128/57 (80) 95 Room Air 05/02/17 13:25 Room Air 05/02/17 11:30 36.7 82 20 115/69 (84) 96 Room Air 05/02/17 10:46 36.8 94 22 95 05/02/17 08:00 36.8 94 22 130/64 (86) 95 Room Air 05/02/17 08:00 Room Air 05/02/17 06:58 82 16 98 Nasal Cannula 2.0 05/02/17 04:00 Nasal Cannula 2.0 05/02/17 03:50 36.6 84 18 142/77 (98) 97 BiPAP 40 05/02/17 03:17 82 16 98 Nasal Cannula 3.0 05/02/17 00:24 36.8 82 19 124/67 (86) 97 BiPAP 05/02/17 00:00 Nasal Cannula 3.0 05/01/17 23:03 72 98 30 05/01/17 23:02 72 20 98 BiPAP/CPAP 30 Lab Results: Results Past 24 Hours Test 05/02/17 05:59 05/02/17 11:00 Range/Units Sodium Level 140 136-145 mmol/L Potassium Level 4.2 3.5-5.1 mmol/L Chloride Level 110 98-107 mmol/L Carbon Dioxide Level 20 21-32 mmol/L Anion Gap 10.0 3-11 mmol/L Blood Urea Nitrogen 19 7-18 mg/dl Creatinine 1.31 0.60-1.40 mg/dl Est Creatinine Clear Calc Drug Dose 58.2 ml/min Estimated GFR () 66.7 Estimated GFR (Non- 57.5 BUN/Creatinine Ratio 14.5 10-20 Random Glucose 208 70-99 mg/dl Estimated Average Glucose 120 mg/dl Hemoglobin A1c 5.8 4.5-5.6 % Lactic Acid Level 3.4 0.4-2.0 mmol/L Calcium Level 8.0 8.5-10.1 mg/dl Magnesium Level 2.2 1.8-2.4 mg/dl Urine Color YELLOW Urine Appearance CLEAR CLEAR Urine pH 5.0 4.5-7.5 Urine Specific [place] 1.029 1.000-1.030 Urine Protein NEG NEG Urine Glucose (UA) 3+ NEG Urine Ketones NEG NEG Urine Occult Blood NEG NEG Urine Nitrite NEG NEG Urine Bilirubin NEG NEG Urine Urobilinogen NEG NEG Urine Leukocyte Esterase NEG NEG
--- NOTE | 2017-05-02 19:44 | NUR ---
ID: Pt is a 61 y/o male admitted with asthma exacerbation, +Flu. Droplet precautions. A/O x4 glasses. +Exp wheezing on RA. Moist cough, aware needs sputum sample. Independent in room. R AC SL, L AC NS @ 125mL/Hr. Possible discharge home tmw.
[2017-05-02] MEDS ORDERED: GUAIFENESIN SUGAR FREE 100 MG/5 ML UDC PO PRN (19:45)
[2017-05-02] MEDS ORDERED: ALUMINUM/MAGNESIUM/SIMETH (MAALOX MAX) 30 ML UDC PO PRN (19:45)
[2017-05-02] MEDS ORDERED: GUAIFENESIN/CODEINE 100MG/10MG 5ML UDC PO PRN (19:45)
[2017-05-02] MEDS ORDERED: LEValbuterol HFA 15GM INHALER INH PRN (20:00)
[2017-05-02] MEDS ORDERED: PANT1TAB4 PO (20:10)
[2017-05-02] MEDS ORDERED: TMF75 PO (20:10)
[2017-05-02] MEDS ORDERED: DXY100 PO (20:10)
--- NOTE | 2017-05-02 20:12 | Discharge Instructions ---
Discharge Instructions Date of Service May 02, 2017. Admission Reason for Admission: Asthma Exacerbation Discharge Discharge Diagnosis / Problem: INFLUENZA A Discharge Goals Goal(s): Improve function, Increase independence, Improve disease control, Diagnostic testing Activity Recommendations Activity Limitations: as noted below ( TOLERATED ) . Instructions / Follow-Up Instructions / Follow-Up HOSPITAL FOLLOW UP WITH FAMILY PHYSICIAN DR LISA QUEZADA IN A WEEK PLEASE CALL OFFICE TO MAKE APPOINTMENT YOU CAN SPREAD INFLUENZA VIRUS THROUGH COUGH OR CONTACT UP TO 7 DAYS FORM BEGINNING FLU LIKE SYMPTOM -FEVER /COUGH /BACKACHE Standard precautions include: Hand hygiene- wash your hand with soap and water , every time you cover your mouth while sneezing or coughing family members who are in contact with you needs to wash hand with soap and water If possible wear Mask until your cough has resolved Avoid visiting person -who are immunocompromised and until you are completely recovered 7-10 days please notify your family physician /or return to ER if you develop fever , worsening of cough or return of Flu Like symptoms MAY RETURN TO WORK AFTER PHYSICIAN FOLLOW UP NEW MEDICATION : COMPLETE THE DOSE OF MEDICATIONS DOXYCYCLINE 100 MG TWICE DAILY FOR 3 MORE DAYS -ANTIBIOTIC TAMIFLU 75 MG TWICE DAILY X3 MORE DAYS -ANTIVIRAL YOU ARE STARTED ON OMEPRAZOLE FOR ACID REFLUX CONT FOR 4 WEEKS , MAY NEED ADDITIONAL GI FOLLOW UP IF NO IMPROVEMENT OF SYMPTOM AFTER 4 WEEKS TX Current Hospital Diet Patient's current hospital diet: AHA Diet (Heart Healthy) Discharge Diet Recommended Diet: AHA Diet (Heart Healthy) Pending Studies Studies pending at discharge: no Laboratory Results Hemoglobin A1c Test 05/02/17 05:59 Range/Units Estimated Average Glucose 120 mg/dl Hemoglobin A1c 5.8 H 4.5-5.6 % Work Instructions Return To Work: after follow-up (WITH FAMILY PHYSICIAN ) Medical Emergencies . Who to Call and When: Medical Emergencies: If at any time you feel your situation is an emergency, please call 911 immediately. . Non-Emergent Contact Non-Emergency issues call your: Primary Care Provider . . "Provider Documentation" section prepared by Mounika Wang. . VTE Core Measure Inpt VTE Proph given/why not?: Annamarie Dumont, SCD's
[2017-05-02] MEDS ORDERED: OMEP20TA PO (20:15)
[2017-05-02] MEDS: ENOXAPARIN 40 MG/0.4 ML SYR SC SCH (21:48)
[2017-05-02] MEDS: DOXYCYCLINE HYCLATE 100 MG CAP PO SCH (21:49)
[2017-05-02] MEDS: SIMVASTATIN 40 MG TAB PO SCH (21:49)
[2017-05-02] MEDS: LISINOPRIL 10 MG TAB PO SCH (21:50)
[2017-05-03] MEDS: SODIUM CHLORIDE 0.9% 1000ML 1,000 ML IV SCH (00:32)
[2017-05-03 07:44] VITALS: BP 134/70; PULSE 57; TEMP 36.5; O2SAT 97
[2017-05-03 08:24] LABS: CALCIUM 8.3 mg/dl (8.5-10.1); CREATININE 1.09 mg/dl (0.60-1.40); POTASSIUM 4.3 mmol/L (3.5-5.1)
[2017-05-03] MEDS ORDERED: PANTOprazole SOD 40 MG TAB PO SCH (09:00)
--- NOTE | 2017-05-03 09:12 | Progress Note ---
Progress Note Date of Service May 03, 2017. Progress Note ATTENDING NOTE : AM LABS reviewed lactic acid level has normalized metabolic panel wnl D/C iVF stable to be discharged home today
[2017-05-03] MEDS: ASPIRIN 81 MG ECTAB PO SCH (09:15)
[2017-05-03] MEDS: DOXYCYCLINE HYCLATE 100 MG CAP PO SCH (09:17)
[2017-05-03] MEDS: ALLOPURINOL 100 MG TAB PO SCH (09:17)
[2017-05-03] MEDS: OSELTAMIVIR PHOSPHATE 75 MG CAP PO SCH (09:17)
--- NOTE | 2017-05-03 13:37 | Discharge Summary ---
Discharge Summary Date of Service May 03, 2017. Discharge Summary Admission Date: Apr 30, 2017 at 19:50 Discharge Date: May 03, 2017 Discharge Disposition: Home Principal Diagnosis: INFLUENZA A Procedures: CHEST XRAY /PORTABLE IMPRESSION: 1. Improved aeration. No focal infiltrate to suggest pneumonia. Medication Reconciliation New Medications: Omeprazole (Omeprazole) 20 Mg Tab 1 TAB PO DAILY for 30 Days, #30 TAB Doxycycline Hyclate (Doxycycline Hyclate) 100 Mg Cap 100 MG PO BID for 3 Days, #6 CAP Oseltamivir Phosphate (Tamiflu) 75 Mg Cap 75 MG PO BID for 3 Days, #6 CAP Continued Medications: Aspirin (Aspirin Ec) 81 Mg Tab 81 MG PO DAILY Cholecalciferol (Vitamin D3 400) 400 Unit Cap 400 INTER.UNIT PO DAILY Icosapent Ethyl (Vascepa) 1 Gm Cap 2 GM PO BID Lisinopril (Zestril) 10 Mg Tab 10 MG PO DAILY, TAB Simvastatin (Zocor) 40 Mg Tab 40 MG PO QPM, TAB [AG Immune] () 2 CAP PO DAILY [BodyWise RightChoice] () 1 CAP PO BID [Liva Tone] () 2 CAP PO DAILY TAKE THIS MEDICATION ONCE DAILY WITH EVENING MEAL Admission Information HPI (per Admitting provider): 61 year old male with history of asthma, HTN, JULES, Gout, presenting with shortness of breath, that started this afternoon. Patient states that he has history of asthma but rarely uses PRN inhalers, and has history of JULES, but does not use his CPAP. adds that patient has been outside in the cold for the past 1-2 days, doing carols for [place]. Today, patient had progressive shortness of breath starting this morning and cough productive of yellow sputum. Has chills, sensation of chest pain with the dyspnea. Per his , patient had worsening of shortness of breath this afternoon prompting her to call EMS. Patient was apparently given Duonebs, Solumedrol while en route to the ER. At the ER, patient was noted to have wheezing and was placed on Bipap, given additional Duoneb. CXR showed possible left lower lobe pneumonia, and was given Doxycycline. On exam, patient was still on Bipap mask and reports that he feels improved compared to admission. Physical Exam (per Admitting): General Appearance: WD/WN, no apparent distress Head: normocephalic, atraumatic Eyes: normal inspection, PERRL, EOMI, sclerae normal ENT: normal ENT inspection, hearing grossly normal, pharynx normal Neck: supple, no adenopathy, thyroid normal, no JVD, trachea midline Respiratory/Chest: chest non-tender, no respiratory distress, no accessory muscle use, + pertinent finding (distant breath sounds but no wheezing, good air entry) Cardiovascular: regular rate, rhythm, no edema, no JVD, no murmur, normal peripheral pulses Abdomen/GI: normal bowel sounds, non tender, soft, no organomegaly Back: normal inspection, no CVA tenderness Extremities/Musculoskelatal: normal inspection, no calf tenderness, normal capillary refill, no pedal edema, normal range of motion Neurologic/Psych: slasher hand II-XII nml as tested, no motor/sensory deficits, alert , normal mood/affect, oriented x 3 Skin: normal color, warm/dry, no rash Lymphatic: + axillary node abnormality Hospital Course no fever or chills feels fine , no headache has mild non productive cough , not bothering him at all energy is back to baseline LAB THIS AM SHOWS NORMAL LACTIC ACID stable to be discharge home today PHYSICAL EXAM Exam: General-no sign of discomfort Eyes-sclera non icteric , PERRLA/EOMI ENT-moist oral mucosa , normal oropharynx Neck-trachea midline , no thyromegaly Lungs-diminished Heart-regular , S1/S2, no JVD, no lower ext edema Abdomen-soft, non tender Extremities-no rash or deformity Neuro-no focal neurological deficit, AAO x3 ACUTE ASTHMA EXACERBATION LIKELY SECONDARY TO INFLUENZA A INFECTION, POSSIBLE BIBASILAR PNEUMONIA - (+) Influenza A PCR - respiratory status improved, no wheeze or rales noted respiratory status improved to baseline no hypoxia or respiratory distress Prednisone d/padmini as it is worsening her GERD Symptoms started on Empiric Abx with Doxycycline-complete course Last Cxray shows improved aeration , no focal infiltrate , INFLUENZA A : complete Tamiflu for 5 days pt educated about Droplet precaution HTN BP stable - continue Lisinopril GERD : has ongoing issue with heart burn /acid reflux takes TUMs PRN only symptom worse since admission -possibly due to steroids added PPI pt is asked to take Omeprazole for 4 weeks , if no improvement of symptom may need referral for GI eval for EGD LACTIC ACIDOSIS due to infection -Flu /dehydration /hypoxia resolved with IVF AM LABS reviewed lactic acid level has normalized metabolic panel wnl D/C iVF PROLONG QTc : resolved admission EKG on 04/30/17 had prolong Qtc > 500 caution was taken to void medication that can prolong Qtc serial EKG ordered EKG on 05/01/17 shows normal Qtc 450 DVT PROPHYLAXIS - Lovenox SC FULL CODE as per patient DISPOSITION stable to discharge home today PCP follow up with Dr. Quezada from [place] Total time spent on discharge = 35 MINS This includes examination of the patient, discharge planning, medication reconciliation, and communication with other providers. Discharge Instructions Discharge Instructions Date of Service May 02, 2017. Admission Reason for Admission: Asthma Exacerbation Discharge Discharge Diagnosis / Problem: INFLUENZA A Discharge Goals Goal(s): Improve function, Increase independence, Improve disease control, Diagnostic testing Activity Recommendations Activity Limitations: as noted below ( TOLERATED ) . Instructions / Follow-Up Instructions / Follow-Up HOSPITAL FOLLOW UP WITH FAMILY PHYSICIAN DR LISA QUEZADA IN A WEEK PLEASE CALL OFFICE TO MAKE APPOINTMENT YOU CAN SPREAD INFLUENZA VIRUS THROUGH COUGH OR CONTACT UP TO 7 DAYS FORM BEGINNING FLU LIKE SYMPTOM -FEVER /COUGH /BACKACHE Standard precautions include: Hand hygiene- wash your hand with soap and water , every time you cover your mouth while sneezing or coughing family members who are in contact with you needs to wash hand with soap and water If possible wear Mask until your cough has resolved Avoid visiting person -who are immunocompromised and until you are completely recovered 7-10 days please notify your family physician /or return to ER if you develop fever , worsening of cough or return of Flu Like symptoms MAY RETURN TO WORK AFTER PHYSICIAN FOLLOW UP NEW MEDICATION : COMPLETE THE DOSE OF MEDICATIONS DOXYCYCLINE 100 MG TWICE DAILY FOR 3 MORE DAYS -ANTIBIOTIC TAMIFLU 75 MG TWICE DAILY X3 MORE DAYS -ANTIVIRAL YOU ARE STARTED ON OMEPRAZOLE FOR ACID REFLUX CONT FOR 4 WEEKS , MAY NEED ADDITIONAL GI FOLLOW UP IF NO IMPROVEMENT OF SYMPTOM AFTER 4 WEEKS TX Current Hospital Diet Patient's current hospital diet: AHA Diet (Heart Healthy) Discharge Diet Recommended Diet: AHA Diet (Heart Healthy) Pending Studies Studies pending at discharge: no Laboratory Results Hemoglobin A1c Test 05/02/17 05:59 Range/Units Estimated Average Glucose 120 mg/dl Hemoglobin A1c 5.8 H 4.5-5.6 % Work Instructions Return To Work: after follow-up (WITH FAMILY PHYSICIAN ) Medical Emergencies . Who to Call and When: Medical Emergencies: If at any time you feel your situation is an emergency, please call 911 immediately. . Non-Emergent Contact Non-Emergency issues call your: Primary Care Provider . . "Provider Documentation" section prepared by Mounika Wang. . VTE Core Measure Inpt VTE Proph given/why not?: ALEK Santos's
[2017-05-03 13:40] VITALS: BP 134/70; PULSE 57; TEMP 36.5; O2SAT 97
--- NOTE | 2017-05-03 14:15 | NUR ---
A: MD order to discharge patient. Discharge instructions given to patient, all questions answered. Prescriptions sent to preferred pharmacy by MD. Saline lock removed with catheter intact. Patient discharged to home with all belongings and discharge instructions. Flu precautions reinforced with patient. Patient aware of follow up appointment.
[2017-11-10] MEDS ORDERED: HYDR-5688 PO (15:45)
[2017-11-14] MEDS ORDERED: IBUP-103 PO (07:58)
[2017-11-15] MEDS ORDERED: OXYC-57 PO ×2 (12:14→12:18)
== END 2017-05-03 14:15 | disposition home or self-care (01) | DRG 194 ==
LOC: EDBD 18:39 → C.EDB 18:39 → C.2T 19:50 → ENRESERV 19:58 → C.MS2W 05-02 11:25
PROVIDERS: ADMIT Internal Medicine; ATTEND Hospitalist
DX: J10.1 Influenza due to other identified influenza virus with other respiratory manifestations (principal); J45.901 Unspecified asthma with (acute) exacerbation; E87.2 Acidosis; E87.6 Hypokalemia; I10 Essential (primary) hypertension; G47.33 Obstructive sleep apnea (adult) (pediatric); M1A.9XX0 Chronic gout, unspecified, without tophus (tophi); K21.9 Gastro-esophageal reflux disease without esophagitis